=== PATIENT | female | born 1950 | race Caucasian/White ===

== ENCOUNTER → 2020-09-08 08:00 | Outpatient (CLI) | payer OTHER, SELFPAY ==
--- NOTE | 2020-09-08 | DI.RAD.S_ITS ---
PROCEDURE: XR HIP W PEL IF DONE MANE MIN 4V INDICATIONS: Low back pain TECHNIQUE: AP pelvis with lateral view(s) of the bilateral hip(s). COMPARISON: None. FINDINGS: Bones: No fractures or dislocations. Pelvic ring appears intact. No suspicious bony lesions. Mild osteoarthritic degenerative changes noted in the left hip including osseous hypertrophy. Severe osteoarthritic degenerative changes noted in the right hip including joint space narrowing, osseous hypertrophy, subchondral sclerosis and subchondral cyst formation. Soft tissues: The visualized bowel gas pattern is normal. No suspicious soft tissue calcifications. IMPRESSION: 1. Mild left hip osteoarthritis. 2. Severe right hip osteoarthritis. Dictated by: Jacy Long MD, PhD on 09/08/2020 at 12:17 Approved by: Jacy Long MD, PhD on 09/08/2020 at 12:18
--- NOTE | 2020-09-08 | DI.RAD.S_ITS ---
PROCEDURE: XR LUMBAR SPINE 2-3V INDICATIONS: Low back pain TECHNIQUE: 3 views of the lumbar spine were acquired. COMPARISON: None. FINDINGS: Bones: 5 [id number] vertebrae are present. There is mild degenerative L2-L3 anterolisthesis. No vertebral body compression fractures. No suspicious bony lesions. Severe L4-L5 degenerative disc disease. Moderate L3-L4 and L5-S1 degenerative disc disease. Mild L1-L2 and L2-L3 degenerative disc disease. Moderate L3-L4, L4-L5 and L5-S1 facet arthropathy. Mild L1-L2 and L2-L3 facet arthropathy. Soft tissues: Overlying bowel gas pattern is normal. No suspicious soft tissue calcifications. IMPRESSION: 1. Multilevel degenerative disc disease. 2. Multilevel facet arthropathy. 3. No fracture. No acute osseous lesion. If symptoms and/or clinical suspicion for pathology persists, evaluation with MRI should be considered for further assessment. Dictated by: Jacy Long MD, PhD on 09/08/2020 at 12:18 Approved by: Jacy Long MD, PhD on 09/08/2020 at 12:20
== END ==
PROVIDERS: PCP Family Medicine; Referring Provider Physician Assistant; Visit Provider Physician Assistant
DX: M54.5 Low back pain (principal); M25.559 Pain in unspecified hip; M16.0 Bilateral primary osteoarthritis of hip; M51.36 Other intervertebral disc degeneration, lumbar region; M51.37 Other intervertebral disc degeneration, lumbosacral region; M47.816 Spondylosis without myelopathy or radiculopathy, lumbar region; M47.817 Spondylosis without myelopathy or radiculopathy, lumbosacral region
CPT/HCPCS: 72100; 73522